=== PATIENT | female | born 1985 | race Hispanic/Latino ===

== ENCOUNTER 2017-12-12 18:01 | Emergency (ER) | payer BC ==
[2017-12-12] MEDS ORDERED: ONDANSETRON HCL 4 MG/2 ML VIAL ONE (18:16)
[2017-12-12 18:23] LABS: BASOPHILS % (AUTO) 0.6 % (0.0-5.0); EOSINOPHILS % (AUTO) 1.8 % (0.0-8.0); LYMPHOCYTES % (AUTO) 33.2 % (21.0-51.0); MEAN CORPUSCULAR HEMOGLOBIN 30.8 pg (27.0-33.0); MEAN CORPUSCULAR HGB CONC 33.6 g/dL (32.0-36.0); MEAN CORPUSCULAR VOLUME 91.6 fL (79-99); MONOCYTES % (AUTO) 10.5 % (3.0-13.0); NEUTROPHILS % (AUTO) 53.9 % (40.0-77.0); NUCLEATED RED BLOOD CELLS 0.1 % (0.0-0.19); PLATELET COUNT (AUTO) 151 K/uL (130-400); RED BLOOD CELL COUNT(AUTO) 4.26 MIL/uL (4.00-5.50); RED CELL DISTRIBUTION WIDTH 13.5 % (11.0-15.5); WHITE BLOOD COUNT (AUTO) 5.6 K/uL (4.8-10.8)
[2017-12-12 18:32] LABS: CREATININE 0.8 mg/dL (0.5-1.5); POTASSIUM 3.3 mmol/L (3.5-5.1)
[2017-12-12 18:33] LABS: INR 1.06 (0.85-1.15); PARTIAL THROMBOPLASTIN TIME 29.3 SEC (26.3-35.5); PROTHROMBIN TIME 11.1 SEC (9.6-11.6)
[2017-12-12 18:37] LABS: ALBUMIN 3.9 g/dL (3.5-5.0); BILIRUBIN,TOTAL 0.4 mg/dL (0.2-1.0); TOTAL PROTEIN, SERUM 7.7 g/dL (6.0-8.3)
[2017-12-12] MEDS ORDERED: FAMOTIDINE/PF 20 MG/2 ML VIAL IV ONE (18:53)
[2017-12-12] MEDS ORDERED: POTASSIUM BICARB/CIT AC 25 MEQ TABLET.EFF ONE (18:53)
[2017-12-12] MEDS ORDERED: MAGNESIUM OXIDE 400 MG TABLET PO ONE (18:53)
[2017-12-12] MEDS ORDERED: HYOSCYAMINE SULFATE 0.125 MG TAB.SUBL SL ONE (18:54)
[2017-12-12 19:02] LABS: APPEARANCE,URINE Clear (CLEAR); BILIRUBIN,URINE Negative (NEGATIVE); COLOR,URINE Yellow (YELLOW); GLUCOSE, URINE (UA) Negative (NEGATIVE); KETONES,URINE 15 mg/dL (NEGATIVE); LEUKOCYTE ESTERASE ,URINE Negative (NEGATIVE); NITRATE,URINE Negative (NEGATIVE); OCCULT BLOOD,URINE Small (NEGATIVE); PH,URINE 6.5 (5.0-8.0); PROTEIN,URINE Negative (NEGATIVE); UROBILINOGEN,URINE 0.2 mg/dL (0.2-1.0)
[2017-12-12 19:10] LABS: HCG,QUAL RESULT NEGATIVE (NEGATIVE)
[2017-12-12 19:19] LABS: BACTERIA,URINE Rare /HPF (None Seen); SQUAMOUS EPITHELIAL CELL,UR Rare /HPF (0-2); TRANSITIONAL EPI CELLS,URINE Rare /HPF (None Seen); WBC,URINE 0-1 /HPF (0-1)
== END 2017-12-12 20:01 | disposition home or self-care (01) ==
LOC: EDH 18:01
DX: E87.6 Hypokalemia (principal); R11.2 Nausea with vomiting, unspecified; R19.7 Diarrhea, unspecified; R53.1 Weakness; Z88.6 Allergy status to analgesic agent; Z90.49 Acquired absence of other specified parts of digestive tract; Z98.890 Other specified postprocedural states; Z86.73 Personal history of transient ischemic attack (TIA), and cerebral infarction without residual deficits
CPT/HCPCS: 36415; 80053; 81001; 81025; 83690; 85025; 85610; 85730; 96361; 96374; 96375; 99284; J2405; J3490

== ENCOUNTER 2018-03-14 18:54 | Emergency (ER) | payer BC, OTHER ==
[2018-03-14 20:01] LABS: APPEARANCE,URINE Clear (CLEAR); BILIRUBIN,URINE Negative (NEGATIVE); COLOR,URINE Yellow (YELLOW); GLUCOSE, URINE (UA) Negative (NEGATIVE); KETONES,URINE Negative (NEGATIVE); LEUKOCYTE ESTERASE ,URINE Negative (NEGATIVE); NITRATE,URINE Negative (NEGATIVE); OCCULT BLOOD,URINE Small (NEGATIVE); PH,URINE 6.5 (5.0-8.0); PROTEIN,URINE Negative (NEGATIVE)
[2018-03-14 20:02] LABS: HCG,QUAL RESULT NEGATIVE (NEGATIVE)
[2018-03-14 20:28] LABS: RAPID GROUP A STREP NEGATIVE (NEGATIVE)
[2018-03-14 20:52] LABS: BACTERIA,URINE Rare /HPF (None Seen); WBC,URINE None Seen /HPF (0-1)
== END 2018-03-14 20:40 | disposition home or self-care (01) ==
LOC: EDH 18:54
DX: J09.X2 Influenza due to identified novel influenza A virus with other respiratory manifestations (principal); R50.9 Fever, unspecified; Z86.73 Personal history of transient ischemic attack (TIA), and cerebral infarction without residual deficits; Z88.5 Allergy status to narcotic agent
CPT/HCPCS: 81001; 81025; 87804; 87880

== ENCOUNTER 2018-07-14 19:31 | Emergency (ER) | payer SELFPAY ==
[2018-07-14 21:17] LABS: BASOPHILS % (AUTO) 0.8 % (0.0-5.0); EOSINOPHILS % (AUTO) 1.4 % (0.0-8.0); HEMATOCRIT 40.9 % (36-48); LYMPHOCYTES % (AUTO) 42.4 % (21.0-51.0); MEAN CORPUSCULAR HEMOGLOBIN 31.5 pg (27.0-33.0); MEAN CORPUSCULAR HGB CONC 33.3 g/dL (32.0-36.0); MEAN CORPUSCULAR VOLUME 94.7 fL (79-99); MONOCYTES % (AUTO) 8.8 % (3.0-13.0); NEUTROPHILS % (AUTO) 46.6 % (40.0-77.0); PLATELET COUNT (AUTO) 189 K/uL (130-400); RED BLOOD CELL COUNT(AUTO) 4.32 MIL/uL (4.00-5.50); RED CELL DISTRIBUTION WIDTH 13.4 % (11.0-15.5); WHITE BLOOD COUNT (AUTO) 7.4 K/uL (4.8-10.8)
[2018-07-14 21:30] LABS: CREATININE 0.8 mg/dL (0.5-1.5); POTASSIUM 3.6 mmol/L (3.5-5.1)
[2018-07-14 21:33] LABS: APPEARANCE,URINE Clear (CLEAR); BILIRUBIN,URINE Negative (NEGATIVE); COLOR,URINE Yellow (YELLOW); GLUCOSE, URINE (UA) Negative (NEGATIVE); KETONES,URINE Trace mg/dL (NEGATIVE); LEUKOCYTE ESTERASE ,URINE Negative (NEGATIVE); NITRATE,URINE Negative (NEGATIVE); OCCULT BLOOD,URINE Small (NEGATIVE); PH,URINE 5.5 (5.0-8.0); PROTEIN,URINE Negative (NEGATIVE); UROBILINOGEN,URINE 0.2 mg/dL (0.2-1.0)
[2018-07-14 21:36] LABS: ALBUMIN 4.2 g/dL (3.5-5.0); BILIRUBIN,TOTAL 0.3 mg/dL (0.2-1.0); TOTAL PROTEIN, SERUM 7.8 g/dL (6.0-8.3)
[2018-07-14 21:37] LABS: HCG,QUAL RESULT NEGATIVE (NEGATIVE)
[2018-07-14 21:51] LABS: BACTERIA,URINE Few /HPF (None Seen); RBC,URINE None Seen /HPF (0-1); SQUAMOUS EPITHELIAL CELL,UR 0-2 /HPF (0-2); WBC,URINE 0-1 /HPF (0-1)
[2018-07-14] MEDS ORDERED: IBUPROFEN 600 MG TABLET ONE (22:04)
== END 2018-07-14 22:11 | disposition home or self-care (01) ==
LOC: EDH 19:31
DX: S39.011A Strain of muscle, fascia and tendon of abdomen, initial encounter (principal); Z86.73 Personal history of transient ischemic attack (TIA), and cerebral infarction without residual deficits; Z88.5 Allergy status to narcotic agent; Z88.8 Allergy status to other drugs, medicaments and biological substances; X50.0XXA Overexertion from strenuous movement or load, initial encounter; Y93.89 Activity, other specified; Y92.89 Other specified places as the place of occurrence of the external cause; Y99.8 Other external cause status
CPT/HCPCS: 36415; 80053; 81001; 81025; 85025

== ENCOUNTER 2019-04-05 10:29 | Emergency (ER) | payer SELFPAY ==
[2019-04-05 10:48] LABS: APPEARANCE,URINE Clear (CLEAR); BILIRUBIN,URINE Negative (NEGATIVE); COLOR,URINE Yellow (YELLOW); GLUCOSE, URINE (UA) Negative (NEGATIVE); KETONES,URINE Negative (NEGATIVE); LEUKOCYTE ESTERASE ,URINE Negative (NEGATIVE); NITRATE,URINE Negative (NEGATIVE); OCCULT BLOOD,URINE Small (NEGATIVE); PH,URINE 5.5 (5.0-8.0); PROTEIN,URINE Negative (NEGATIVE); UROBILINOGEN,URINE 0.2 mg/dL (0.2-1.0)
[2019-04-05 10:51] LABS: HCG,QUAL RESULT NEGATIVE (NEGATIVE)
[2019-04-05 10:54] LABS: BASOPHILS % (AUTO) 0.9 % (0.0-5.0); EOSINOPHILS % (AUTO) 1.4 % (0.0-8.0); HEMATOCRIT 38.6 % (36-48); LYMPHOCYTES % (AUTO) 43.6 % (21.0-51.0); MEAN CORPUSCULAR HEMOGLOBIN 31.8 pg (27.0-33.0); MEAN CORPUSCULAR HGB CONC 33.9 g/dL (32.0-36.0); MEAN CORPUSCULAR VOLUME 93.7 fL (79-99); MONOCYTES % (AUTO) 7.7 % (3.0-13.0); NEUTROPHILS % (AUTO) 46.1 % (40.0-77.0); PLATELET COUNT (AUTO) 205 K/uL (130-400); RED BLOOD CELL COUNT(AUTO) 4.12 MIL/uL (4.00-5.50); RED CELL DISTRIBUTION WIDTH 12.2 % (11.0-15.5)
[2019-04-05 11:03] LABS: CREATININE 0.8 mg/dL (0.5-1.5); POTASSIUM 4.3 mmol/L (3.5-5.1)
[2019-04-05 11:08] LABS: BILIRUBIN,TOTAL 0.4 mg/dL (0.2-1.0); TOTAL PROTEIN, SERUM 7.8 g/dL (6.0-8.3)
[2019-04-05 11:09] LABS: BACTERIA,URINE Rare /HPF (None Seen); WBC,URINE 0-1 /HPF (0-1)
[2019-04-05 11:25] LABS: AMPHET/METH SCREEN,URINE NEGATIVE (NEGATIVE); BARBITURATE SCREEN, URINE NEGATIVE (NEGATIVE); BENZODIAZEPINES SCREEN,URINE NEGATIVE (NEGATIVE); CANNABINOID SCREEN,URINE NEGATIVE (NEGATIVE); COCAINE SCREEN,URINE NEGATIVE (NEGATIVE); OPIATE SCREEN,URINE NEGATIVE (NEGATIVE); PHENCYCLIDINE SCREEN,URINE NEGATIVE (NEGATIVE)
[2019-04-05] MEDS ORDERED: IOHEXOL-350 75 ML VIAL IV ONE (12:03)
== END 2019-04-05 13:23 | disposition home or self-care (01) ==
LOC: EDH 10:29
DX: R22.1 Localized swelling, mass and lump, neck (principal); R42 Dizziness and giddiness; Z86.73 Personal history of transient ischemic attack (TIA), and cerebral infarction without residual deficits; Z88.8 Allergy status to other drugs, medicaments and biological substances; Z98.51 Tubal ligation status
CPT/HCPCS: 36415; 70450; 70491; 71045; 80053; 80305; 81001; 81025; 85025; 99285; Q9967

== ENCOUNTER 2021-04-14 05:30 | Day surgery (SDC) | payer OTHER ==
[2021-04-13 11:15] VITALS: BP 127/78
[2021-04-13 11:41] LABS: BASOPHILS % (AUTO) 1.1 % (0.0-5.0); EOSINOPHILS % (AUTO) 4.1 % (0.0-8.0); HEMATOCRIT 39.6 % (36-48); LYMPHOCYTES % (AUTO) 35.9 % (21.0-51.0); MEAN CORPUSCULAR HEMOGLOBIN 30.9 pg (27.0-33.0); MEAN CORPUSCULAR HGB CONC 34.1 g/dL (32.0-36.0); MEAN CORPUSCULAR VOLUME 90.6 fL (79-99); MONOCYTES % (AUTO) 8.5 % (3.0-13.0); NEUTROPHILS % (AUTO) 49.9 % (40.0-77.0); PLATELET COUNT (AUTO) 216 K/uL (130-400); RED BLOOD CELL COUNT(AUTO) 4.37 MIL/uL (4.00-5.50); WHITE BLOOD COUNT (AUTO) 6.3 K/uL (4.8-10.8)
[2021-04-14] VITALS (14 sets, daily range): BP systolic 116–147; BP diastolic 52–77
[~2021-04-14] VITALS: Ht 154.9 cm; Wt 72.1 kg
[~2021-04-14 05:30] MED LIST: ACET-2743 PO; IBUP-2076 PO
[2021-04-14] MEDS ORDERED: LACTATED RINGERS 1000ML 1,000 ML IV ONE (07:43)
[2021-04-14] MEDS ORDERED: LIDOCAINE PF 100MG/5ML (2%) SYRINGE 5ML ONE (09:13)
[2021-04-14] MEDS ORDERED: FENTANYL CITRATE PF 50 MCG/1 ML 2ML VIAL ONE (09:13)
[2021-04-14] MEDS ORDERED: SUCCINYLCHOLINE 200MG/10ML SYR ONE (09:13)
[2021-04-14] MEDS ORDERED: PROPOFOL 10 MG/ML 20ML VIAL IV ONE (09:13)
[2021-04-14] MEDS ORDERED: ROCURONIUM BROMIDE 10MG/1ML 5ML VL ONE (09:13)
[2021-04-14] MEDS ORDERED: NEOSTIGMINE 5MG/5ML SYR IV ONE (12:00)
[2021-04-14] MEDS ORDERED: DEXAMETHASONE SOD PHOSPHATE 4 MG/ML 1ML VIAL ONE (12:20)
[2021-04-14] MEDS ORDERED: ONDANSETRON 4MG INJ ONE ×2 (12:20→13:09)
[2021-04-14] MEDS ORDERED: MEPERIDINE-PF 25 MG/ML SYG ONE ×2 (12:22→12:31)
[2021-04-14] MEDS ORDERED: PROMETHAZINE HCL 25 MG/ML 1ML AMPULE IM SCH (13:00)
== END 2021-04-14 14:41 | disposition home or self-care (01) ==
LOC: DAH 05:30
PROVIDERS: ATTEND Obstetrics & Gynecology
DX: R10.2 Pelvic and perineal pain (principal); N70.11 Chronic salpingitis; N83.291 Other ovarian cyst, right side; Z20.822 Contact with and (suspected) exposure to COVID-19; N80.1 Endometriosis of ovary; N80.8 Other endometriosis; Z90.49 Acquired absence of other specified parts of digestive tract; Z90.89 Acquired absence of other organs; Z98.890 Other specified postprocedural states; Z98.891 History of uterine scar from previous surgery; Z88.8 Allergy status to other drugs, medicaments and biological substances; Z83.3 Family history of diabetes mellitus; Z83.49 Family history of other endocrine, nutritional and metabolic diseases
CPT/HCPCS: 36415; 58662; 84703; 85025; 86850; 86900; 86901; 87635; A4215 ×2; A4221; A4222; A4223; A4344; A4351; A4510; A4600; A4606; A4649 ×2; A4663; A6260; C1769 ×3; C9803; J0330; J1100; J2001; J2175 ×2; J2405 ×2; J2704; J2710; J3010; J3490; J7120